=== PATIENT | female | born 1990 | race Caucasian/White ===

== ENCOUNTER 2020-09-05 10:34 | Inpatient (IN) ==
[2020-09-05] MEDS ORDERED: MIDAZOLAM 100 MG in SODIUM CHLORIDE 0.9% 80 ML IV SCH (11:00)
[2020-09-05 11:18] LABS: ABG Base Excess -13.5 MMOL/L (-2.5-2.5); ABG HCO3 14.1 MMOL/L (20-26); ABG PCO2 53.8 MM HG (35-48); ABG PO2 99.9 MM HG (80-95); ABG TCO2 15.7 MMOL/L (23-27); Allen Test Positive; Pt O2 Delivery Device Ventilator
[2020-09-05 11:27] LABS: ABG PH 7.105 (7.35-7.45)
[2020-09-05 11:45] LABS: Bilirubin,Urine Negative (Negative); Blood, Urine Small mg/dL (Negative); Glucose,Urine (UA) Negative (Negative); Hyaline Casts,Urine 3 /LPF (0-3); Ketones,Urine Negative (Negative); Mucus,Urine Occasional /LPF (Occasional); Nitrite,Urine Negative (Negative); Protein,Urine Negative; RBC,Urine <1 /HPF (0-4); Squamous Epithelial Cell,Urine Few /HPF (0-10); Urine Appearance CLOUDY (Clear); Urine Color Yellow (Yellow); Urine Urobilinogen < 2.0 EU/DL (0.2-1.0); WBC,Urine 1 /HPF (0-6)
[2020-09-05] MEDS ORDERED: ONDANSETRON 4 MG/2 ML VIAL IV PRN (11:51)
[2020-09-05] MEDS: MIDAZOLAM 100 MG in SODIUM CHLORIDE 0.9% 80 ML IV PRN (11:55)
[2020-09-05 11:57] LABS: Basophils % 0.2 % (0.0-0.8); Hematocrit 43.9 VOL% (35.7-47.0); Hemoglobin 13.8 GM/DL (12.0-16.0); Immature Granulocytes % 0.3 %; Immature Granulocytes Absolute 0.03 #; Lymphocytes # 0.6 10*3/uL (1.4-4.0); Lymphocytes % 6.3 % (21.3-54.2); Mean Corpuscular HGB Conc 31.4 GM/DL (32-36); Mean Corpuscular Volume 99.8 FL (87-102); Mean Platelet Volume 9.5 FL (9.6-12.0); Monocytes % 3.5 % (1.7-12.7); Neutrophils % 89.7 % (38.7-73.9); Platelet Count 224 T/CUMM (130-400); Red Cell Distribution Width 12.4 % (9.3-17.3); White Blood Count 8.8 T/CUMM (4-12)
[2020-09-05 12:05] LABS: Alanine Aminotransferase 33 U/L (13-56); Albumin 3.7 G/DL (3.4-5.0); Alkaline Phosphatase 71 U/L (45-117); Aspartate Amino Transferase 23 U/L (0-37); Bilirubin,Total < 0.39 MG/DL (0.2-1.0); Blood Urea Nitrogen 9 MG/DL (7-18); Calcium 8.3 MG/DL (8.5-10.1); Carbon Dioxide 18 MMOL/L (21-32); Estimated Glom Filtration Rate 75 ML/MIN; Glucose 111 MG/DL (74-106); Osmolality,Calculated 272.8 MOS/KG (273-304); Sodium 137 MMOL/L (136-145); Total Protein 6.8 G/DL (6.4-8.2)
[2020-09-05 12:12] LABS: Barbiturates Screen,Urine Negative (Negative); Benzodiazepines Screen,Urine Positive (Negative); Cannabinoid Screen,Urine Positive (Negative); Opiate Screen,Urine Negative (Negative); Phencyclidine Screen,Urine Negative (Negative)
[2020-09-05 12:18] LABS: INR 1.1; PT Patient Result 11.7 SECS (9.8-11.9)
[2020-09-05 12:19] LABS: Band Neutrophils 10 % (0-10); Lymphocytes 4 % (20-55); Metamyelocytes 2 %; Segmented Neutrophils 80 % (50-85); Total Cells Counted 100
[2020-09-05 12:20] LABS: Free T4 (Free Thyroxine) 0.85 NG/DL (0.76-1.46); Thyroid Stimulating Hormone 0.822 uIU/ml (0.358-3.74)
[2020-09-05 12:20] LABS: Anisocytosis Slight; Macrocytosis Slight; Platelet Estimate Normal
[2020-09-05 12:22] LABS: Partial Thromboplastin Time < 20.0 SECS (23.9-33.8)
[2020-09-05 12:30] LABS: Acetaminophen < 2.0 UG/ML (10-30); Salicylate < 2.8 MG/DL (2.8-20)
[2020-09-05 13:19] LABS: Hepatitis B Core IgM Quant 0.12 Index; Hepatitis B Surface Ag Quant < 0.10 Index; Hepatitis B Surface Ag Result Non-Reactive (NonReactive); Hepatitis C Virus Ab Quant 0.06 Index; Hepatitis C Virus Ab Result Non-Reactive (NonReactive)
[2020-09-05] MEDS ORDERED: SODIUM CHLORIDE 0.9% 1,000 ML IV ONE (13:25)
[2020-09-05 14:48] LABS: ABG Base Excess -4.6 MMOL/L (-2.5-2.5); ABG HCO3 19.5 MMOL/L (20-26); ABG PH 7.275 (7.35-7.45); ABG TCO2 20.6 MMOL/L (23-27); Allen Test Positive; Pt O2 Delivery Device Ventilator
[2020-09-05] MEDS: FAMOTIDINE 20 MG/2 ML VIAL IV SCH ×2 (14:48→23:36)
[2020-09-05] MEDS: LORazepam 2 MG/1 ML VIAL IV PRN ×2 (14:48→16:46)
[2020-09-05] MEDS: LACTATED RINGERS 1,000 ML IV SCH ×2 (14:48→21:24)
[2020-09-05 14:50] LABS: ABG PO2 24.8 MM HG (80-95)
[2020-09-05] MEDS ORDERED: MIDAZOLAM 2 MG/2 ML VIAL IV ONE ×5 (15:05→15:48)
[2020-09-05 15:38] LABS: ABG Base Excess -6.6 MMOL/L (-2.5-2.5); ABG HCO3 19.1 MMOL/L (20-26); ABG Oxygen Saturation 98.6 % (95-100); ABG PCO2 40.4 MM HG (35-48); ABG PH 7.295 (7.35-7.45); ABG TCO2 17.5 MMOL/L (23-27)
[2020-09-05] MEDS ORDERED: SUCCINYLCHOLINE 200 MG/10 ML VIAL ONE (15:46)
[2020-09-05] MEDS ORDERED: SUCCINYLCHOLINE 200 MG/10 ML VIAL IV ONE (15:50)
[2020-09-05] MEDS: fentaNYL INJ 1,250 MCG in SODIUM CHLORIDE 0.9% 225 ML IV PRN (18:20)
[2020-09-05] MEDS: ENOXAPARIN 40 MG/0.4 ML SYRINGE SUBCUT SCH (20:23)
[2020-09-06] MEDS: fentaNYL INJ 1,250 MCG in SODIUM CHLORIDE 0.9% 225 ML IV PRN (01:01)
[2020-09-06] MEDS: LACTATED RINGERS 1,000 ML IV SCH ×5 (01:03→20:16)
[2020-09-06] MEDS: MIDAZOLAM 100 MG in SODIUM CHLORIDE 0.9% 80 ML IV PRN (04:10)
[2020-09-06 04:33] LABS: Basophils % 0.2 % (0.0-0.8); Eosinophils % 0.1 % (0.00-10.9); Immature Granulocytes % 0.3 %; Immature Granulocytes Absolute 0.04 #; Lymphocytes # 1.3 10*3/uL (1.4-4.0); Lymphocytes % 10.9 % (21.3-54.2); Mean Corpuscular HGB Conc 32.8 GM/DL (32-36); Mean Platelet Volume 9.4 FL (9.6-12.0); Monocytes % 5.6 % (1.7-12.7); Neutrophils % 82.9 % (38.7-73.9); Red Blood Count 3.37 MC/CUMM (3.8-5.5); Red Cell Distribution Width 12.6 % (9.3-17.3); White Blood Count 11.5 T/CUMM (4-12)
[2020-09-06 04:34] LABS: Hemoglobin 10.5 GM/DL (12.0-16.0); Platelet Count 177 T/CUMM (130-400)
[2020-09-06 04:43] LABS: ABG Base Excess -1.2 MMOL/L (-2.5-2.5); ABG Oxygen Saturation 98.2 % (95-100); ABG PCO2 36.2 MM HG (35-48); ABG PO2 122.6 MM HG (80-95); ABG TCO2 24.1 MMOL/L (23-27); Allen Test Positive; Pt O2 Delivery Device Ventilator
[2020-09-06 04:47] LABS: Albumin 2.7 G/DL (3.4-5.0); Osmolality,Calculated 279.1 MOS/KG (273-304); Potassium 3.6 MMOL/L (3.5-5.1); Total Protein 4.9 G/DL (6.4-8.2)
[2020-09-06 05:01] LABS: Hypochromasia 3+; Lymphocytes 16 % (20-55); Platelet Estimate Normal; Segmented Neutrophils 79 % (50-85); Total Cells Counted 100
[2020-09-06] MEDS ORDERED: MAGNESIUM SULF RIDER 2 GM in PREMIX 1 EACH IV ONE (07:08)
[2020-09-06] MEDS ORDERED: MAGNESIUM SULF RIDER 4 GM in PREMIX 1 EACH IV PRN (08:23)
[2020-09-06] MEDS ORDERED: MAGNESIUM SULF RIDER 2 GM in PREMIX 1 EACH IV PRN (08:23)
[2020-09-06] MEDS: LORazepam 2 MG/1 ML VIAL IV PRN ×3 (10:52→20:01)
[2020-09-06] MEDS: FAMOTIDINE 20 MG/2 ML VIAL IV SCH ×2 (15:32→23:14)
[2020-09-06] MEDS ORDERED: DEXMEDETOMIDINE 200 MCG in SODIUM CHLORIDE 0.9% 48 ML IV PRN (15:32)
[2020-09-06] MEDS ORDERED: LORazepam 2 MG/1 ML VIAL ONE (19:57)
[2020-09-06] MEDS: ENOXAPARIN 40 MG/0.4 ML SYRINGE SUBCUT SCH (20:17)
[2020-09-07] MEDS: LACTATED RINGERS 1,000 ML IV SCH ×2 (04:11→05:33)
[2020-09-07 04:18] LABS: Basophils % 0.5 % (0.0-0.8); Eosinophils % 0.2 % (0.00-10.9); Hemoglobin 10.2 GM/DL (12.0-16.0); Immature Granulocytes % 1.2 %; Lymphocytes # 0.8 10*3/uL (1.4-4.0); Lymphocytes % 9.2 % (21.3-54.2); Mean Corpuscular HGB Conc 31.9 GM/DL (32-36); Mean Corpuscular Volume 96.7 FL (87-102); Mean Platelet Volume 9.4 FL (9.6-12.0); Monocytes % 7.5 % (1.7-12.7); Neutrophils % 81.4 % (38.7-73.9); Platelet Count 149 T/CUMM (130-400); Red Blood Count 3.31 MC/CUMM (3.8-5.5); Red Cell Distribution Width 12.4 % (9.3-17.3); White Blood Count 8.3 T/CUMM (4-12)
[2020-09-07 04:23] LABS: ABG Base Excess -1.2 MMOL/L (-2.5-2.5); ABG HCO3 23.5 MMOL/L (20-26); ABG Oxygen Saturation 99.4 % (95-100); ABG PH 7.389 (7.35-7.45); ABG TCO2 21.2 MMOL/L (23-27); Allen Test Positive; Pt O2 Delivery Device Ventilator
[2020-09-07 04:39] LABS: Osmolality,Calculated 276.4 MOS/KG (273-304); Potassium 3.8 MMOL/L (3.5-5.1)
[2020-09-07 04:42] LABS: Atypical Lymphocytes Few; Band Neutrophils 4 % (0-10); Hypochromasia Slight; Lymphocytes 8 % (20-55); Segmented Neutrophils 85 % (50-85); Total Cells Counted 100
[2020-09-07 04:43] LABS: Microcytosis 1+
[2020-09-07] MEDS: LORazepam 2 MG/1 ML VIAL IV PRN (05:29)
[2020-09-07] MEDS ORDERED: LORazepam 2 MG/1 ML VIAL IV PRN (09:22)
[2020-09-07] MEDS: DEXTROSE 5% NACL 0.45% 1,000 ML IV SCH (11:29)
[2020-09-07] MEDS: FAMOTIDINE 20 MG/2 ML VIAL IV SCH (12:05)
[2020-09-07] MEDS ORDERED: DEXTROSE 50% 25 GM/50 ML VIAL IV PRN (17:25)
[2020-09-07] MEDS ORDERED: GLUCAGON 1 MG VIAL IM PRN (17:25)
[2020-09-07] MEDS: ENOXAPARIN 40 MG/0.4 ML SYRINGE SUBCUT SCH (20:07)
[2020-09-08] MEDS: DEXTROSE 5% NACL 0.45% 1,000 ML IV SCH ×3 (04:57→20:46)
[2020-09-08 05:36] LABS: Basophils % 0.2 % (0.0-0.8); Eosinophils % 0.6 % (0.00-10.9); Hematocrit 29.9 VOL% (35.7-47.0); Hemoglobin 10.4 GM/DL (12.0-16.0); Immature Granulocytes % 0.7 %; Immature Granulocytes Absolute 0.04 #; Lymphocytes # 0.9 10*3/uL (1.4-4.0); Lymphocytes % 15.8 % (21.3-54.2); Mean Corpuscular HGB Conc 34.8 GM/DL (32-36); Mean Platelet Volume 9.8 FL (9.6-12.0); Neutrophils % 73.7 % (38.7-73.9); Platelet Count 125 T/CUMM (130-400); Red Blood Count 3.25 MC/CUMM (3.8-5.5); Red Cell Distribution Width 12.2 % (9.3-17.3); White Blood Count 5.4 T/CUMM (4-12)
[2020-09-08 05:57] LABS: Calcium 7.7 MG/DL (8.5-10.1); Osmolality,Calculated 275.4 MOS/KG (273-304); Potassium 3.1 MMOL/L (3.5-5.1)
[2020-09-08 06:03] LABS: Band Neutrophils 2 % (0-10); Eosinophils 1 % (0-10); Hypochromasia Slight; Lymphocytes 14 % (20-55); Platelet Estimate Normal; Segmented Neutrophils 81 % (50-85); Total Cells Counted 100
[2020-09-08] MEDS ORDERED: POTASSIUM CHLORIDE RIDER 10 MEQ in PREMIX 1 EACH IV PRN (07:20)
[2020-09-08] MEDS: POTASSIUM CHLORIDE RIDER 20 MEQ in PREMIX 1 EACH IV PRN ×2 (10:18→14:46)
[2020-09-08] MEDS: ENOXAPARIN 40 MG/0.4 ML SYRINGE SUBCUT SCH (20:46)
[2020-09-08] MEDS ORDERED: PHENOL 1.4% THROAT SPRAY 177 ML BOTTLE PO PRN (23:29)
[2020-09-09 05:55] LABS: Calcium 8.1 MG/DL (8.5-10.1); Osmolality,Calculated 271.7 MOS/KG (273-304); Potassium 3.2 MMOL/L (3.5-5.1)
[2020-09-09] MEDS: POTASSIUM CHLORIDE 20 MEQ TABLET PO PRN ×3 (09:55→12:18)
[2020-09-09 11:37] VITALS: BP 111/71
[2020-09-09] MEDS ORDERED: levETIRAcetam 250 MG TABLET PO SCH (21:00)
== END 2020-09-09 16:00 | disposition home or self-care (01) | DRG 917 ==
LOC: EDUNIT# → EDBD → N.ED 10:34 → SUATTDRO 12:17 → N.EDINP 12:17 → N.CC 12:36 → N.4E 09-07 14:50
PROVIDERS: ADMIT Family Medicine; ATTEND Emergency Medicine